=== PATIENT | female | born 1995 | race Caucasian/White ===

== ENCOUNTER 2023-02-18 11:44 | Emergency (ER) | payer SELFPAY ==
[2023-02-18 11:45] VITALS: BP 117/78; PULSE 66; RESP 16; TEMP 35.9; O2SAT 99; BMI 28.3
--- NOTE | 2023-02-18 12:01 | EDS_ITS ---
HPI <Dr. Sravan Thomas, - Last Filed: 02/18/23 12:33> History of Present Illness Chief Complaint: Complaint <AYDEN Berrios - Last Filed: 02/18/23 12:36> Narrative Narrative: Patient is a 27-year-old female who presents to the emergency department for vaginal burning, left lower back pain. Patient states that 3 weeks ago, she was on Bactrim twice a day for 7 days, she has been off Bactrim for 2 weeks. She states that the symptoms stopped for couple days and now they are worse. Patient states that she has worsening burning on urination. Patient denies any vaginal discharge, patient denies any concerns for STD. Patient does not have any concerns for . PFSH <Dr. Sravan Thomas, - Last Filed: 02/18/23 12:33> PFSH Medical History no medical history Home Medications ciprofloxacin HCl 500 mg tablet (Cipro) 500 mg PO BID 10 days #20 tabs 02/18/23 [Rx Last Taken Unknown] Allergy/AdvReac Type Severity Reaction Status Date / Time No Known Allergies Allergy Verified 02/18/23 11:46 Surgical History no surgical history Social History Smoking Status: Never smoker ROS <AYDEN Berrios - Last Filed: 02/18/23 12:36> ROS ED ROS Narrative Constitutional: Negative for fever, chills, weight loss, weakness Eyes: Negative for vision loss, vision change, double vision ENT: Negative for any sore throat, ear pain, congestion Cardiovascular: Negative for any chest pain, tightness, palpitations Respiratory: Negative for any cough, sputum production, hemoptysis, dyspnea, dyspnea on exertion, orthopnea Gastrointestinal: Negative for any abdominal pain, nausea, vomiting, diarrhea, constipation, blood in stool, blood in vomit : Negative for any retention, blood in urine. Positive for urinary frequency, urinary burning Muscle skeletal: Negative for any muscle joint pain, stiffness, myalgias, arthr algias, neck pain. Positive for left lower back pain Neurological: Negative for any headache, syncope, numbness or tingling, dizziness Skin: Negative for any rashes, lumps, itching, abrasions, lacerations Psychiatric: Negative for any depression, anxiety, stress, suicidal ideation, homicidal ideation Hematologic: Negative for any easy bruising, excessive bruising, easy bleeding Allergies: Negative for any eczema, hives, rash EXAM <Dr. Sravan Thomas DO - Last Filed: 02/18/23 12:33> Physical Exam Const Vital Signs: 02/18/23 11:45 Temperature 96.7 F L Temperature Source Temporal Pulse Rate 66 Respiratory Rate 16 Blood Pressure 117/78 Blood Pressure Mean 91 Pulse Ox 99 Oxygen Delivery Method Room Air <Joel MacdonaldAYDEN - Last Filed: 02/18/23 12:36> Physical Exam Narrative Exam Narrative: Vital signs reviewed. HEET: Head normocephalic atraumatic, TMs clear bilaterally. Posterior pharynx is clear, moist mucous membranes. Nares clear bilaterally. Neck: Supple with no lymphadenopathy or tenderness. No signs of meningismus, negative jolt sign. Cardiac: Regular rate and rhythm no murmurs gallops or rubs, equal peripheral pulses bilaterally. Respiratory: Lungs clear to auscultation bilaterally. No chest tenderness. Abdomen: Soft, nontender, nondistended. No abdominal bruit or pulsatile masses. No hepatosplenomegaly Extremities: No peripheral edema, no signs of gross trauma or deformity. Active full range of motion of all extremities. Neuro: Cranial nerves II through XII intact, no focal neurological deficits. Skin: Clean dry and intact with no rash, purpura, petechiae, vesicles or pustules. Backs/flank: No CVA tenderness, no midline spinal tenderness, no deformity. Patient's pain is more towards the left lower lumbar spine. Psych: Normal mood and affect. No SI, HI or acute psychosis. Const Vital Signs: 02/18/23 11:45 Temperature 96.7 F L Temperature Source Temporal Pulse Rate 66 Respiratory Rate 16 Blood Pressure 117/78 Blood Pressure Mean 91 Pulse Ox 99 Oxygen Delivery Method Room Air Positive well nourished and well developed General Appearance ED: well developed MDM <Dr. Sravan Thomas, - Last Filed: 02/18/23 12:33> MDM MDM Narrative Medical decision making narrative: I have personally performed a face to face assessment of the patient and have reviewed the GRACY Note. I performed a substantive portion of the visit including all aspects of the following. My mena findings include: History: Patient presents with dysuria and vaginal burning that has been getting worse over the past several days. Patient states she was recently treated for urinary tract infection. Patient states her symptoms initially started to improve but then returned. Patient admits to burning with urination. Patient states the pain radiates into her lower back. Patient denies any fevers or chills. Patient denies any nausea or vomiting. Exam: Vital signs are stable. Patient is afebrile. Patient is in no acute dis tress. Oral mucosa is pink and moist. Neck is supple. Trachea is midline. There is no JVD. Heart was regular rate and rhythm. Lungs are clear and equal bilaterally. Abdomen is soft. Bowel sounds are normal. There is some mild suprapubic tenderness. There is no rebound or guarding noted. There is no CVA tenderness noted. Cranial nerves II through XII are intact. There are no focal motor or sensory deficits noted. Medical Decision Making: Differential diagnosis includes cystitis, urethritis, ovarian cyst, ectopic , and sexually transmitted infection. CBC will be obtained to assess for leukocytosis and anemia. Basic metabolic profile will be obtained to assess for electrolyte abnormality and renal function. Urinalysis will be obtained to assess for urinary tract infection. Urine hCG will be obtained to assess for . GC and chlamydia will be obtained to assess for sexually transmitted infection. CBC was reviewed. There is a mild leukocytosis of 14.5. The remainder is within normal limits. Basic metabolic profile was reviewed and was within normal limits. Urinalysis was reviewed. Leukocyte esterase was 500 with greater than 100 white blood cells. There is 3+ bacteria. Urine hCG was negative. Urine culture was ordered. Patient was given a dose of Rocephin here. Patient given a prescription for Cipro. Patient was instructed to follow-up with her primary care physician in 3 to 5 days for reevaluation. Patient understood and was agreeable with the plan. All questions were answered. Lab Data Labs: Laboratory Results - last 24 hr 02/18/23 12:05 WBC 14.5 H RBC 4.55 Hgb 13.3 Hct 41.7 MCV 91.6 MCH 29.2 MCHC 31.9 L RDW Std Deviation 44.3 H RDW Coeff of Malini 13.2 Plt Count 325 MPV 10.5 Immature Gran % (Auto) 0.400 Neut % (Auto) 64.8 Lymph % (Auto) 25.8 [place] % (Auto) 4.6 Eos % (Auto) 3.6 Baso % (Auto) 0.8 Absolute Neuts (auto) 9.4 H Absolute Lymphs (auto) 3.74 Nucleated RBC % 0 Sodium 140 Potassium 3.6 Chloride 107 Carbon Dioxide 26.0 Anion Gap 7 BUN 9 Creatinine 0.76 Estim Creat Clear Calc 109.08 Est GFR (MDRD) Af Amer 118 Est GFR (MDRD) Non-Af 98 BUN/Creatinine Ratio 11.9 Glucose 90 Calcium 8.6 Urine Color Yellow Urine Clarity Cloudy Urine pH 6.0 Ur Specific [place] 1.015 Urine Protein 30 H Urine Glucose (UA) Normal Urine Ketones Negative Urine Occult Blood 50 H Urine Nitrite Negative Urine Bilirubin Negative Urine Urobilinogen Normal Ur Leukocyte Esterase 500 H Urine RBC 0 SEEN Urine WBC >100 SEEN Ur Squamous Epith Cells 0-5 SEEN Urine Bacteria 3+ Urine Mucus 0 SEEN Urine Test Negative <AYDEN Berrios - Last Filed: 02/18/23 12:36> [facility] Lab Data Labs: Laboratory Results - last 24 hr 02/18/23 12:05 WBC 14.5 H RBC 4.55 Hgb 13.3 Hct 41.7 MCV 91.6 MCH 29.2 MCHC 31.9 L RDW Std Deviation 44.3 H RDW Coeff of Malini 13.2 Plt Count 325 MPV 10.5 Immature Gran % (Auto) 0.400 Neut % (Auto) 64.8 Lymph % (Auto) 25.8 [place] % (Auto) 4.6 Eos % (Auto) 3.6 Baso % (Auto) 0.8 Absolute Neuts (auto) 9.4 H Absolute Lymphs (auto) 3.74 Nucleated RBC % 0 Sodium 140 Potassium 3.6 Chloride 107 Carbon Dioxide 26.0 Anion Gap 7 BUN 9 Creatinine 0.76 Estim Creat Clear Calc 109.08 Est GFR (MDRD) Af Amer 118 Est GFR (MDRD) Non-Af 98 BUN/Creatinine Ratio 11.9 Glucose 90 Calcium 8.6 Urine Color Yellow Urine Clarity Cloudy Urine pH 6.0 Ur Specific [place] 1.015 Urine Protein 30 H Urine Glucose (UA) Normal Urine Ketones Negative Urine Occult Blood 50 H Urine Nitrite Negative Urine Bilirubin Negative Urine Urobilinogen Normal Ur Leukocyte Esterase 500 H Urine RBC 0 SEEN Urine WBC >100 SEEN Ur Squamous Epith Cells 0-5 SEEN Urine Bacteria 3+ Urine Mucus 0 SEEN Urine Test Negative Treatment and Re-Evaluation :: Patient appears generally well, patient appears nontoxic, vital signs are stable. Presenting to the emergency department with urinary burning, vaginal pain, left lower back pain. Differential diagnosis includes pyelonephritis, UTI, ovarian cyst, STI. Patient received some basic laboratory values concerning for any leukocytosis, kidney function test. Patient will also receive a urinalysis, urine Prag, as well as GC/chlamydia in the urine. Patient's urinalysis was positive for infection with 500 leukocytes, greater than 100 white blood cells, 3+ bacteria. Patient is not . Patient's laboratory does show slight leukocytosis white blood count of 14.5, patient's BMP was unremarkable, kidney function was within normal limits. At this time, patient will be treated for UTI, pyelonephritis. I do not believe the patient needs admitted to the hospital. Patient be given a dose of IV Rocephin here, he placed on 10 days of Cipro. Patient's urine will be sent for culture. GC/committee will also be sent for culture. I spoke with the patient, she will return if not improved, worsening back pain, fever chills nausea vomiting. All questions were answered, patient stable for discharge Discharge Plan Triage Chief Complaint: Complaint ED Midlevel Provider: Joel Macdonald ED Provider: Sravan Thomas Dx/Rx/DC Orders Clinical Impression: UTI (urinary tract infection), Pyelonephritis Instructions: ED Pyelonephritis, Female (Adult) Prescriptions: New ciprofloxacin HCl [Cipro] 500 mg tablet 500 mg PO BID 10 Days Qty: 20 0RF Primary Care Provider: NOT,DEFINED Referrals: NOT,DEFINED [Primary Care Provider] - Activity Restrictions/Additional Instructions: Please take antibiotics until finished. Ensure you stay hydrated. Return for worsening back pain, fever chills nausea or vomiting. Disposition Disposition: Home, Self Care
[2023-02-18 12:13] LABS: Mucous, Urine 0 SEEN /hpf (<or=2+); Red Blood Cells-Urine 0 SEEN /hpf (0-5)
[2023-02-18 12:16] LABS: Absolute Lymphocyte Count 3.74 X10^3/uL (0.83-4.51); Absolute Neutrophil Count 9.4 X10^3/uL (2.0-7.7); Basophil# 0.11 X10^3/uL; Basophil% 0.8 % (0-1); Eosinophil# 0.52 X10^3/uL; Eosinophils% 3.6 % (0-5); Hematocrit 41.7 % (37-47); Hemoglobin 13.3 g/dL (12.0-15.0); Lymphocyte # 3.74 X10^3/ul (0.83-4.51); Lymphocyte % 25.8 % (19-41); Mean Corp Hgb Conc 31.9 g/dL (32-36); Mean Corpuscular Hgb 29.2 pg (27.0-32.0); Mean Corpuscular Volume 91.6 fL (81-99); Mean Platelet Vol. 10.5 fl (6.2-12.0); Monocyte# 0.66 X10^3/uL; Monocyte% 4.6 % (0-10); NRBC Flagged by Analyzer 0 % (0-5); Neutrophil % 64.8 % (47-70); Platelet Count 325 K/mm3 (150-450); RBC Distribution Width CV 13.2 % (11.6-14.6); RBC Distribution Width SD 44.3 fl (35.1-43.9); Red Blood Count 4.55 M/mm3 (4.2-5.4); White Blood Count 14.5 K/mm3 (4.4-11.0)
[2023-02-18 12:21] LABS: Color, Urine Yellow (Yellow); Glucose, Dipstick Normal (Normal); Ketone-Dipstick Negative (Negative); Leukocyte Esterase-Dipstick 500 /ul (Negative); Nitrite-Dipstick Negative (Negative); Occult Blood-Urine 50 /ul (Negative); Protein-Dipstick 30 mg/dl (Negative); Specific Gravity, Urine 1.015 (1.002-1.030); Urine Bilirubin Dipstick Negative (Negative); Urine Clarity Cloudy (Clear); Urine Urobilinogen Normal (Normal)
[2023-02-18 12:29] LABS: Anion Gap 7 (5-15); BUN 9 mg/dL (7-18); BUN/Creat Ratio 11.9 RATIO (10-20); Calcium,Total 8.6 mg/dL (8.5-10.1); Chloride 107 mmol/L (98-107); Creatinine, Serum 0.76 mg/dL (0.55-1.02); EST Glomerular Filtration Rate 98 mL/min (>60); Est Glom Filt Rate - Afr Amer 118 mL/min (>60); Estimated Creatinine Clearance 109.08 ml/min; Glucose 90 mg/dL (74-106); Potassium 3.6 mmol/L (3.5-5.1); Sodium Level 140 mmol/L (136-145); Squamous Epithelial Cells - UA 0-5 SEEN /hpf (5-10)
[2023-02-18 12:30] LABS: Bacteria 3+ /hpf (None Seen); Internal QC Validated? YES +Cl - CLEAR BKGD; Pregnancy, Urine Negative Negative; White Blood Cells >100 SEEN /hpf (0-5)
[2023-02-18] MEDS: Ceftriaxone 1 GM/50 ML BAG IV (12:59)
[2023-02-18 14:10] VITALS: BP 128/74; PULSE 75; RESP 16; O2SAT 99
[2023-02-21 07:08] LABS: Chlamydia By Nucleic Acid AMP Negative (Negative); Gonococcus By Nucleic Acid AMP Negative (Negative)
== END 2023-02-18 14:11 | disposition home or self-care (01) ==
PROVIDERS: Nurse Practitioner; Emergency Provider Emergency Medicine; Visit Provider Emergency Medicine
DX: N12 Tubulo-interstitial nephritis, not specified as acute or chronic (principal); N39.0 Urinary tract infection, site not specified
CPT/HCPCS: 80048; 81001; 81025; 85025; 87086; 87088; 87186; 87491; 87591; 96365; 99283; A4216

== ENCOUNTER 2023-09-30 04:59 | Emergency (ER) | payer SELFPAY ==
[2023-09-30 05:00] VITALS: BP 129/74; PULSE 73; RESP 16; TEMP 35.7; O2SAT 95; BMI 28.8
[2023-09-30 05:20] LABS: Bacteria 0 SEEN /hpf (None Seen); Mucous, Urine 0 SEEN /hpf (<or=2+); Red Blood Cells-Urine 0 SEEN /hpf (0-5); White Blood Cells 0 SEEN /hpf (0-5)
--- NOTE | 2023-09-30 05:29 | EDS_ITS ---
HPI History of Present Illness Chief Complaint: Abd Pain Informant: patient Narrative Narrative: 27-year-old female presenting to the emergency room with lower abdominal pain. Patient states it goes from the right lower quadrant to the left. She states it feels like a sharp cramp. She got nauseous when she attempted to stand up and walk earlier in the night. Patient's not had any vomiting. She notes a normal bowel movement yesterday. No reported fevers. She denies urinary symptoms. Last menstrual cycle was about 2 weeks ago. No prior abdominal surgeries. She did feel some discomfort in her right low back. Patient has no history of ovarian cyst. She denies any vaginal discharge or abnormal bleeding. She notes her mom has a history of ovarian cyst. PFSH PFSH Medical History no medical history Home Medications ?Medication ?Instructions ?Recorded ?Last Taken ?Type NK 09/30/23 Unknown History Allergy/AdvReac Type Severity Reaction Status Date / Time Food Allergies: Uncoded Allergy Anaphylaxis Verified 09/30/23 05:06 Social History Smoking Status: Current some day smoker tobacco type: e-cigarettes ROS ROS ED Constitutional Constitutional ED: Denies chills or weight loss Eyes Eyes: Denies change in vision or diplopia ENT ENT ED: Denies ear pain, rhinorrhea or sore throat Cardiovascular Cardiovascular: Denies chest pain, orthopnea, palpitations or racing heartbeat Respiratory/Chest Respiratory/Chest: Denies cough, dyspnea or orthopnea Gastrointestinal Gastrointestinal: Reports abdominal pain and nausea; Denies diarrhea or vomiting Genitourinary Genitourinary ED: Denies dysuria, hematuria or urinary frequency Musculoskeletal Musculoskeletal: Denies arthralgias or myalgias Integumentary Denies abscess or rash Neurologic Neurologic: Denies headache(s) or weakness Psychiatric Psychiatric: Denies anxiety, depression, suicidal ideation or suicidal thoughts Endocrine Endocrinology: Denies polydipsia, polyphagia or polyuria Allergic/Immunologic Allergic/Immunologic ED: Denies mouth swelling, tongue swelling or urticaria EXAM Physical Exam Const Vital Signs: 09/30/23 05:00 09/30/23 06:03 09/30/23 07:00 Temperature 96.3 F L 97.8 F 98.1 F Temperature Source Oral Oral Oral Pulse Rate 73 88 66 Respiratory Rate 16 16 16 Blood Pressure 129/74 H 105/56 L 100/58 L Blood Pressure Mean 92 72 72 Pulse Ox 95 98 98 Oxygen Delivery Method Room Air Room Air Room Air Positive well nourished and well developed General Appearance ED: well developed HEENT Reports normocephalic, head/scalp atraumatic and moist mucous membranes Eyes PERRL and EOMs intact bilaterally Neck no lymphadenopathy, supple and no JVD Resp normal respiratory effort and clear to auscultation bilaterally Cardio regular rate, regular rhythm and no murmurs GI Inspection: Negative for abdominal distention Auscultation: normoactive bowel sounds Palpation: soft and tender RLQ and suprapubic; Negative for guarding or rebound tenderness present Back/Spine no CVA tenderness and normal ROM Extremity normal to inspection General Extremety ED: Negative for edema General Extremity: Negative for edema Neuro oriented x3 and CN's II-XII intact bilaterally Sensorium / Orientation: alert Motor Exam: strength 5/5 throughout Psych mental status grossly normal Mood & Affect: Negative for depressed or tearful Skin no rashes or lesions noted and no wounds MDM MDM MDM Narrative Medical decision making narrative: Differential diagnosis includes appendicitis ureterolithiasis UTI ovarian cyst pelvic infection. White count slightly elevated 13.8 BMP within normal limits urinalysis showed no overt infection test is negative. Patient received a dose of Toradol. CT of the abdomen pelvis shows some mild free fluid in the pelvis. The appendix was noted by radiology to be visualized and negative. I reviewed the above findings with the patient. She is experiencing considerable discomfort. We talked about outpatient follow-up for possible ruptured ovarian cyst versus pelvic ultrasound. She again notes no vaginal discharge fevers. She denies activity placing her at risk for STD. Using shared decision making we are going to obtain a pelvic ultrasound. If this is negative I would anticipate an ED discharge to follow-up with [facility] with a prescription for pain medication. I will check the patient out to the oncoming physician for final disposition and check of the pelvic ultrasound. History & Record Review Discussion w/independent historian: Patient and Significant other Lab Data Attestation: I reviewed the patient's lab results. Labs: Laboratory Results - last 24 hr 09/30/23 09/30/23 05:10 05:30 WBC 13.8 H RBC 4.08 L Hgb 12.2 Hct 37.2 MCV 91.2 MCH 29.9 MCHC 32.8 RDW Std Deviation 42.4 RDW Coeff of Malini 12.9 Plt Count 279 MPV 10.1 Immature Gran % (Auto) 0.400 Neut % (Auto) 50.8 Lymph % (Auto) 39.6 [place] % (Auto) 5.2 Eos % (Auto) 3.3 Baso % (Auto) 0.7 Absolute Neuts (auto) 7.0 Absolute Lymphs (auto) 5.44 H Nucleated RBC % 0 Differential Comment SCANNED Sodium 139 Potassium 3.5 Chloride 108 H Carbon Dioxide 23.0 Anion Gap 8 BUN 10 Creatinine 0.64 Estim Creat Clear Calc 147.87 Est GFR (MDRD) Af Amer 142 Est GFR (MDRD) Non-Af 117 BUN/Creatinine Ratio 15.5 Glucose 95 Calcium 8.7 Urine Color Yellow Urine Clarity Clear Urine pH 6.0 Ur Specific [place] 1.020 Urine Protein Negative Urine Glucose (UA) Normal Urine Ketones Negative Urine Occult Blood Negative Urine Nitrite Negative Urine Bilirubin Negative Urine Urobilinogen Normal Ur Leukocyte Esterase Negative Urine RBC 0 SEEN Urine WBC 0 SEEN Ur Squamous Epith Cells 0-5 SEEN Urine Bacteria 0 SEEN Urine Mucus 0 SEEN Urine Test Negative Radiography Diagnostic Testing: Clinical Impression(s) from Imaging Studies Abdomen/Pelvis CT 09/30/23 06:14 IMPRESSION: Small amount of free fluid nonspecific. No evidence of acute appendicitis. Electronically Signed: Pili Downs MD at 7:08 EDT , Discharge Plan Triage Chief Complaint: Abd Pain ED Provider: Ken Wright Dx/Rx/DC Orders Prescriptions: No Action NK Primary Care Provider: Care Physician,No Primary Referrals: Care Physician,No Primary [Primary Care Provider] - Print Language: Italian
[2023-09-30 05:34] LABS: Color, Urine Yellow (Yellow); Glucose, Dipstick Normal (Normal); Ketone-Dipstick Negative (Negative); Leukocyte Esterase-Dipstick Negative /ul (Negative); Nitrite-Dipstick Negative (Negative); Occult Blood-Urine Negative /ul (Negative); Protein-Dipstick Negative (Negative); Urine Bilirubin Dipstick Negative (Negative); Urine Clarity Clear (Clear); Urine Urobilinogen Normal (Normal)
[2023-09-30] MEDS: Ketorolac 30 MG/ML Syringe IV (05:37)
[2023-09-30 05:43] LABS: Absolute Lymphocyte Count 5.44 X10^3/uL (0.83-4.51); Basophil# 0.09 X10^3/uL; Basophil% 0.7 % (0-1); Eosinophil# 0.46 X10^3/uL; Eosinophils% 3.3 % (0-5); Hematocrit 37.2 % (37-47); Hemoglobin 12.2 g/dL (12.0-15.0); Lymphocyte # 5.44 X10^3/ul (0.83-4.51); Lymphocyte % 39.6 % (19-41); Mean Corp Hgb Conc 32.8 g/dL (32-36); Mean Corpuscular Hgb 29.9 pg (27.0-32.0); Mean Corpuscular Volume 91.2 fL (81-99); Mean Platelet Vol. 10.1 fl (6.2-12.0); Monocyte# 0.71 X10^3/uL; Monocyte% 5.2 % (0-10); NRBC Flagged by Analyzer 0 % (0-5); Neutrophil # 6.99 X10^3/uL (2.7-7.7); Neutrophil % 50.8 % (47-70); POSITIVE DIFFERENTIAL YES; POSITIVE MORPHOLOGY YES; Platelet Count 279 K/mm3 (150-450); RBC Distribution Width CV 12.9 % (11.6-14.6); RBC Distribution Width SD 42.4 fl (35.1-43.9); Red Blood Count 4.08 M/mm3 (4.2-5.4); White Blood Count 13.8 K/mm3 (4.4-11.0)
[2023-09-30 05:43] LABS: Internal QC Validated? YES +Cl - CLEAR BKGD; Pregnancy, Urine Negative Negative; Record Kit Lot#,Urine Preg 735774
[2023-09-30 05:53] LABS: Squamous Epithelial Cells - UA 0-5 SEEN /hpf (5-10)
[2023-09-30 05:54] LABS: Differential Indicated SCAN CRITERIA MET
[2023-09-30 06:01] LABS: Anion Gap 8 (5-15); BUN 10 mg/dL (7-18); BUN/Creat Ratio 15.5 RATIO (10-20); Calcium,Total 8.7 mg/dL (8.5-10.1); Chloride 108 mmol/L (98-107); Creatinine, Serum 0.64 mg/dL (0.55-1.02); EST Glomerular Filtration Rate 117 mL/min (>60); Est Glom Filt Rate - Afr Amer 142 mL/min (>60); Estimated Creatinine Clearance 147.87 ml/min; Glucose 95 mg/dL (74-106); Potassium 3.5 mmol/L (3.5-5.1); Sodium Level 139 mmol/L (136-145)
[2023-09-30 06:03] VITALS: BP 105/56; PULSE 88; RESP 16; TEMP 36.6; O2SAT 98
--- NOTE | 2023-09-30 06:14 | CT_ITS ---
EXAM: CT Abdomen And Pelvis W/ Contrast Injection HISTORY: RLQ PAIN TECHNIQUE: Routine protocol CT abdomen pelvis. IV Contrast: IV 100mL Isovue-370 . Oral Contrast: without. Sagittal and coronal images were reconstructed. RADIATION DOSAGE (If Supplied By Facility): CTDIvol = ( 14.89 ) mGy, DLP = ( 931.78 ) mGycm Individualized dose optimization techniques were used for this CT. COMPARISON: None. LIMITATIONS: None. FINDINGS: LOWER CHEST: Lung bases are clear. LIVER: Unremarkable. GALLBLADDER/BILE DUCTS: Unremarkable. PANCREAS: Unremarkable. SPLEEN: Unremarkable. ADRENAL GLANDS: Unremarkable. KIDNEYS / URETERS: Unremarkable. BOWEL / MESENTERY: Unremarkable. No bowel obstruction. APPENDIX: Identified and normal. No evidence of acute appendicitis. PERITONEUM: No free air. Small amount of free fluid in the right lower abdomen and pelvis. VESSELS: Abdominal aorta is normal caliber. RETROPERITONEUM: Unremarkable. REPRODUCTIVE ORGANS: Unremarkable. BLADDER: Unremarkable. ABDOMINAL WALL: Unremarkable. BONES: No acute abnormality. OTHER: None. CT/Abdomen/Pelvis W IV Cont ONLY IMPRESSION: Small amount of free fluid nonspecific. No evidence of acute appendicitis. Electronically Signed: Pili Downs MD at 7:08 EDT ,
[2023-09-30 06:41] LABS: Differential Comment SCANNED
[2023-09-30 07:00] VITALS: BP 100/58; PULSE 66; RESP 16; TEMP 36.7; O2SAT 98
--- NOTE | 2023-09-30 07:39 | US_ITS ---
HISTORY: pelvic pain-RLQ. TECHNIQUE: Transvaginal pelvic ultrasound was performed with palomares scale , spectral Doppler, and color Doppler evaluation. 76 images. COMPARISON: CT same day. FINDINGS: UTERUS: 7.8 x 3.8 x 5.3 cm. Anteverted. ENDOMETRIAL THICKNESS: 3 mm. RIGHT OVARY: 1.9 x 2.3 x 2.9 cm with a 10 mm dominant follicle. Vascular flow demonstrated. No adnexal masses LEFT OVARY: 2.1 x 2.3 x 3.3 cm. Vascular flow demonstrated. 1.5 x 1.7 x 2.2 cm involuting complex cystic ovarian lesion. 1.6 x 1.7 x 2 cm simple left adnexal cyst. FREE FLUID: Mild. US/Transvaginal Non- IMPRESSION: Vascular flow demonstrated to both ovaries. Mild free fluid in the pelvis with a small complex involuting left ovarian cyst, probable hemorrhagic cyst. Small left paraovarian cyst. Electronically Signed: Ness Enrique MD at 9:38 EDT ,
[2023-09-30] MEDS: Ondansetron 4 MG/2 ML Vial IV (07:54)
[2023-09-30] MEDS: Morphine 4 MG/ML Syringe IV (07:54)
[2023-09-30 08:00] VITALS: BP 104/61; PULSE 64; RESP 16; TEMP 36.7; O2SAT 98
[2023-09-30 09:00] VITALS: BP 121/99; PULSE 52; RESP 18; O2SAT 96
[2023-09-30 10:25] VITALS: BP 102/68; PULSE 60; RESP 18; TEMP 36.1; O2SAT 98
== END 2023-09-30 10:31 | disposition home or self-care (01) ==
PROVIDERS: Emergency Provider Emergency Medicine; Visit Provider Emergency Medicine
DX: R10.31 Right lower quadrant pain (principal); R10.32 Left lower quadrant pain; F17.290 Nicotine dependence, other tobacco product, uncomplicated
CPT/HCPCS: 74177; 76830; 80048; 81001; 81025; 85025; 93976; 96374; 96375; 99283; Q9967; A4216; J2405

== ENCOUNTER 2024-10-13 17:45 | Emergency (ER) | payer OTHER, BC, SELFPAY ==
[2024-10-13 17:47] VITALS: BP 115/55; PULSE 78; RESP 16; TEMP 36; O2SAT 97
--- NOTE | 2024-10-13 18:15 | RAD_ITS ---
PROCEDURE: KNEE 4 OR MORE VIEWS 10/13/2024 REASON FOR EXAM: PAIN TECHNIQUE: KNEE 4 OR MORE VIEWS COMPARISON: None RAD/Knee 4 or More Views IMPRESSION: No acute fracture or dislocation. No significant degenerative changes. Mild d iffuse soft tissue edema. Mild joint effusion. No radiographic foreign body. Reading Location: [id number]
[2024-10-13 20:46] VITALS: BMI 36.9
--- NOTE | 2024-10-13 20:46 | EDS_ITS ---
HPI History of Present Illness HPI Narrative: Patient presents with right knee pain that began today. Patient states she was at work and hit her knee on a piece of equipment at work. Patient states that her patella went laterally. Patient states her pain is sharp. Patient states it is worse with movement. Patient states it is better with rest. Patient denies any paresthesias or weakness. Patient denies any other injuries. Chief Complaint: Lower Extremity Injury Informant: patient Occured/Mechanism Mechanism/Context: Yes blunt trauma Onset/Context/Timing Onset: Today Context: Sudden Onset Timing: Continuous Quality of Pain: Sharp Location: Right knee Worsened by: Movement Relieved by: Rest Associated Symptoms Associated Symptoms: Negative for Parasthesia, Weakness or Loss of Funtion PFSH PFSH no medical history Home Medications ?Medication ?Instructions ?Recorded ?Last Taken ?Type oxycodone-acetaminophen 5 mg-325 1 tab PO Q6H PRN PRN Pain 3 days 09/30/23 Unknown Rx mg tablet #12 TABLETS Allergy/AdvReac Type Severity Reaction Status Date / Time Food Allergies: Uncoded Allergy Anaphylaxis Verified 10/13/24 17:47 Surgical History (Updated 10/13/24 @ 22:[address] Sravan Thomas DO) History of kidney surgery History of tonsillectomy and adenoidectomy Social History household members: significant other housing: apartment Smoking Status: Current some day smoker tobacco type: e-cigarettes ROS ROS ED Constitutional Constitutional ED: Denies chills or fever(s) Eyes Eyes: Denies blurry vision or change in vision ENT ENT ED: Denies rhinorrhea or sore throat Cardiovascular Cardiovascular: Denies chest pain or palpitations Respiratory/Chest Respiratory/Chest: Denies cough or dyspnea Gastrointestinal Gastrointestinal: Denies nausea or vomiting Genitourinary Genitourinary ED: Denies dysuria or hematuria Musculoskeletal Musculoskeletal: Denies back pain or neck pain Integumentary Denies abscess or rash Neurologic Neurologic: Denies headache(s) or weakness Allergic/Immunologic Allergic/Immunologic ED: Denies mouth swelling or urticaria EXAM Physical Exam Const Vital Signs: 10/13/24 17:47 10/13/24 21:46 10/13/24 22:31 Temperature 96.8 F L 98.3 F Temperature Source Temporal Pulse Rate 78 80 80 Respiratory Rate 16 16 16 Blood Pressure 115/55 L 126/78 H 126/78 H Blood Pressure Mean 75 94 94 Pulse Ox 97 99 99 Oxygen Delivery Method Room Air Positive well nourished and well developed General Appearance ED: well developed and NAD HEENT Reports moist mucous membranes Neck full ROM and supple Extremity Extremity Narrative: There is tenderness over the anterior aspect of the right knee. There is no bony crepitus or step-off. There is no deformity noted. There is no laxity appreciated. Varus and valgus stress test were negative. Hayes's test was negative. Extensor mechanism is intact. Strength is 5/5 bilaterally in the lower extremities. There are no sensory deficits noted. Pedal pulses are equal bilaterally. Neuro oriented x3, CN's II-XII intact bilaterally, moves all extremities and no sensory deficits noted Sensorium / Orientation: alert Motor Exam: strength 5/5 throughout Psych mental status grossly normal MDM MDM MDM Narrative Medical decision making narrative: Differential diagnosis includes contusion, sprain, and occult fracture. X-rays of the right knee will be obtained to assess for occult fracture. Radiography Diagnostic Testing: Clinical Impression(s) from Imaging Studies Knee X-Ray 10/13/24 18:15 IMPRESSION: No acute fracture or dislocation. No significant degenerative changes. Mild diffuse soft tissue edema. Mild joint effusion. No radiographic foreign body. Reading Location: [facility] X-rays of the right knee were obtained. There are 4 views. On my independent interpretation, there is no acute fracture or dislocation. There is a mild joint effusion. Radiologist also interpreted the x-rays and agrees. Treatment and Re-Evaluation Narrative: Patient was advised of her findings. Patient was advised that this is most likely a contusion. Patient was instructed to ice and elevate the right knee. Patient was instructed to take Tylenol or ibuprofen as needed for pain. Patient was instructed to follow-up with her primary care physician or the [facility] in 5 to 7 days. Patient was instructed to return if worse in any way. Patient understood and was agreeable with the plan. All questions were answered. Discharge Plan Triage Chief Complaint: Lower Extremity Injury ED Provider: Sravan Thomas Dx/Rx/DC Orders Clinical Impression: Contusion of right knee, initial encounter Instructions: ED Contusion, Lower Extremity Prescriptions: No Action oxycodone-acetaminophen 5-325 mg tablet 1 tab PO Q6H PRN PRN (Reason: Pain) 3 Days Qty: 12 0RF Primary Care Provider: Care Physician,No Primary Referrals: Care Physician,No Primary [Primary Care Provider] - [facility] [Non-Staff] - 5-7 Days Print Language: Slovenian Disposition Disposition: Home, Self Care Discharge Date/Time: 10/13/24 22:31
[2024-10-13 21:46] VITALS: BP 126/78; PULSE 80; RESP 16; O2SAT 99
[2024-10-13 22:31] VITALS: BP 126/78; PULSE 80; RESP 16; TEMP 36.8; O2SAT 99
== END 2024-10-13 22:31 | disposition home or self-care (01) ==
PROVIDERS: Emergency Provider Emergency Medicine; Visit Provider Emergency Medicine
DX: S80.01XA Contusion of right knee, initial encounter (principal); W22.09XA Striking against other stationary object, initial encounter; Y99.0 Civilian activity done for income or pay
CPT/HCPCS: 73564; 99282

== ENCOUNTER 2025-03-02 01:03 | Emergency (ER) | payer BC, SELFPAY ==
[2025-03-02 01:03] VITALS: BP 175/79; PULSE 93; RESP 16; TEMP 37.3; O2SAT 98; BMI 38.4
[2025-03-02 01:06] VITALS: BP 175/79; PULSE 95; RESP 16; TEMP 37.3; O2SAT 98
[2025-03-02 02:04] LABS: Mucous, Urine 0 SEEN /hpf (<or=2+)
[2025-03-02 02:06] LABS: Color, Urine Yellow (Yellow); Glucose, Dipstick Normal (Normal); Ketone-Dipstick Negative (Negative); Leukocyte Esterase-Dipstick 500 /ul (Negative); Nitrite-Dipstick Negative (Negative); Occult Blood-Urine 250 /ul (Negative); Protein-Dipstick 30 mg/dl (Negative); Specific Gravity, Urine 1.015 (1.002-1.030); Urine Bilirubin Dipstick Negative (Negative)
[2025-03-02 02:13] LABS: Internal QC Validated? YES +Cl - CLEAR BKGD; Pregnancy, Urine Negative Negative
[2025-03-02 02:14] LABS: Record Kit Lot#,Urine Preg 0000980607
[2025-03-02 02:15] LABS: Red Blood Cells-Urine > 100 SEEN /hpf (0-5); Squamous Epithelial Cells - UA 5-10 SEEN /hpf (5-10)
--- NOTE | 2025-03-02 02:49 | CT_ITS ---
PROCEDURE: CT/Abdomen/Pelvis without Cont
[2025-03-02 03:03] VITALS: BP 129/60; PULSE 73; RESP 16; O2SAT 97
[2025-03-02] MEDS: Ketorolac 30 MG/ML Syringe IV (03:12)
[2025-03-02] MEDS: 0.9% Normal Saline (1000mL) 1,000 ML 999 ML IV (03:12)
[2025-03-02 03:19] LABS: Hematocrit 37.2 % (37-47); Hemoglobin 12.0 g/dL (12.0-15.0); Immature Granulocytes Count 0.090 X10^3/uL (0.0-0.0); Mean Corp Hgb Conc 32.3 g/dL (32-36); Mean Corpuscular Volume 89.6 fL (81-99); Mean Platelet Vol. 9.9 fl (6.2-12.0); NRBC Flagged by Analyzer 0 % (0-5); Platelet Count 275 K/mm3 (150-450); RBC Distribution Width CV 13.0 % (11.6-14.6); RBC Distribution Width SD 43.1 fl (35.1-43.9); Red Blood Count 4.15 M/mm3 (4.2-5.4); White Blood Count 19.9 K/mm3 (4.4-11.0)
[2025-03-02 03:40] LABS: Anion Gap 9 (5-15); BUN 14 mg/dL (4-19); BUN/Creat Ratio 19.3 RATIO (10-20); Calcium,Total 8.2 mg/dL (7.6-11.0); Carbon Dioxide 23.5 mmol/L (21.0-32.0); Chloride 107 mmol/L (98-108); Estimated Creatinine Clearance 147.58 ml/min (50-250); Glucose 105 mg/dL (70-99); Potassium 3.8 mmol/L (3.3-5.1)
--- NOTE | 2025-03-02 04:30 | EX.ED.DYSGE1 ---
HPI History of Present Illness Chief Complaint: Flank Pain Informant: patient Narrative Narrative: Patient is a 29-year-old female who states she recently finished antibiotics for bacterial vaginosis. Today she has noticed discomfort with urination and states that there is bilateral back pain associated with this but it is greatest on the right. She denies any fevers or chills or concern for . She denies any vaginal bleeding or discharge or concern for STD. She states has been no recent trauma or excessive activity. However with the worsening symptoms she is concerned she may have an infection with this presents for evaluation [facility] Medical History (Updated 03/03/25 @ 01:[address] Jose D Burnham, DO) Bacterial vaginosis Home Medications ?Medication ?Instructions ?Recorded ?Last Taken ?Type cephalexin 500 mg capsule 500 mg PO TID 7 days #21 caps 03/02/25 Unknown Rx escitalopram oxalate 5 mg tablet 5 mg PO DAILY 03/02/25 Unknown History lamotrigine 100 mg tablet 100 mg PO DAILY 03/02/25 Unknown History oxycodone-acetaminophen 5 mg-325 1 tab PO Q6H PRN pain 3 days #12 03/02/25 Unknown Rx mg tablet (Percocet) tabs Allergy/AdvReac Type Severity Reaction Status Date / Time Food Allergies: Uncoded Allergy Anaphylaxis Verified 03/02/25 01:06 Surgical History History of kidney surgery History of tonsillectomy and adenoidectomy Social History household members: significant other housing: apartment Smoking Status: Former smoker ROS ROS ED Constitutional Constitutional ED: Denies chills or fever(s) ENT ENT ED: Denies sore throat Cardiovascular Cardiovascular: Denies chest pain Respiratory/Chest Respiratory/Chest: Denies cough or dyspnea Gastrointestinal Gastrointestinal: Reports abdominal pain; Denies diarrhea, nausea or vomiting Genitourinary Genitourinary ED: Reports dysuria and urinary frequency; Denies hematuria Musculoskeletal Musculoskeletal: Reports back pain Integumentary Denies rash Neurologic Neurologic: Denies headache(s) Hematologic/Lymphatic Hematologic/Lymphatic: Denies easy bleeding or easy bruising EXAM Physical Exam Const Vital Signs: 03/02/25 03:03 03/02/25 04:34 Temperature 99 F Pulse Rate 73 70 Respiratory Rate 16 16 Blood Pressure 129/60 H 121/52 H Blood Pressure Mean 83 75 Pulse Ox 97 95 Oxygen Delivery Method Room Air Positive well nourished and well developed General Appearance ED: well developed; Negative for pallor HEENT HEENT Narrative: Normocephalic atraumatic Eyes PERRL and EOMs intact bilaterally General Eye ED: Negative for scleral icterus Neck supple Resp normal respiratory effort and clear to auscultation bilaterally Cardio regular rate and regular rhythm Rate: other Other Details: Heart is regular rate and rhythm without murmurs rubs or gallops Radial and carotid pulses are equal and symmetric GI non-distended and no masses GI Narrative: Abdomen is soft and nondistended with normal active bowel sounds Patient has pain on palpation in the suprapubic region No voluntary guarding or rigidity or pulsatile mass No peritoneal signs Auscultation: normoactive bowel sounds Palpation: soft Back/Spine Back/Spine Narrative: Right CVA pain is noted Extremity normal to inspection Neuro oriented x3, CN's II-XII intact bilaterally and no sensory deficits noted Sensorium / Orientation: alert Motor Exam: strength 5/5 throughout Psych mental status grossly normal Skin no rashes or lesions noted and no wounds Skin Narrative: No overlying soft tissue changes to suggest trauma or infection General Skin Exam: Negative for jaundice or pallor MDM MDM MDM Narrative Medical decision making narrative: Patient arrived to ER hypertensive otherwise with stable vitals. She reported midline lower abdominal discomfort with dysuria. History and exam is most consistent with UTI. However as she also has pain mainly along the right flank patient could have atypical presentation for kidney stone. In order to rule out signs of urosepsis acute kidney injury complication or kidney stone basic labs and a urine sample were ordered as well as a noncontrast CT. labs show leukocytosis at 19.9 but otherwise no sign of acute kidney injury or clinically significant electrolyte abnormality. Urine sample does show +3 bacteria with greater than 100 white cells most consistent with infection. There is also a large amount of blood present. This could be due to the UTI causing bleeding from the bladder but with concern that this was from a kidney stone a CT was obtained. The CT scan revealed no sign of stone but did mention thickening of the bladder which would correlate with her infectious process. The patient does have the elevated white blood cell count but this time she is afebrile her blood pressure is stable she is not tachycardic and therefore she is not showing other findings that would suggest systemic infection/sepsis. Therefore she was given IV Rocephin because of the infection but without signs of CORINNA or urosepsis I do not feel she warrants admission to the hospital. Her urine will be sent for culture and she will be started on Keflex in the meantime. This plan of care was discussed with the patient who is agreeable to it and with stable vitals and improvement of symptoms she is otherwise safe for discharge History & Record Review Discussion w/independent historian: Patient Lab Data Attestation: I reviewed the patient's lab results. Labs: Laboratory Results - last 24 hr 03/02/25 03/02/25 01:58 03:13 WBC 19.9 H RBC 4.15 L Hgb 12.0 Hct 37.2 MCV 89.6 MCH 28.9 MCHC 32.3 RDW Std Deviation 43.1 RDW Coeff of Malini 13.0 Plt Count 275 MPV 9.9 Immature Gran % (Auto) 0.500 Neut % (Auto) 70.1 H Lymph % (Auto) 21.4 [place] % (Auto) 5.4 Eos % (Auto) 2.2 Baso % (Auto) 0.4 Absolute Neuts (auto) 14.0 H Absolute Lymphs (auto) 4.27 Nucleated RBC % 0 Sodium 139 Potassium 3.8 Chloride 107 Carbon Dioxide 23.5 Anion Gap 9 BUN 14 Creatinine 0.73 Estim Creat Clear Calc 147.58 Est GFR (MDRD) Non-Af 115 BUN/Creatinine Ratio 19.3 Glucose 105 H Calcium 8.2 Urine Color Yellow Urine Clarity Cloudy Urine pH 7.0 Ur Specific [place] 1.015 Urine Protein 30 H Urine Glucose (UA) Normal Urine Ketones Negative Urine Occult Blood 250 H Urine Nitrite Negative Urine Bilirubin Negative Urine Urobilinogen Normal Ur Leukocyte Esterase 500 H Urine RBC > 100 SEEN Urine WBC >100 SEEN Ur Squamous Epith Cells 5-10 SEEN Urine Bacteria 3+ Urine Mucus 0 SEEN Urine Test Negative Radiography Diagnostic Testing: Clinical Impression(s) from Imaging Studies Abdomen/Pelvis CT 03/02/25 02:49 IMPRESSION: No renal calculi. No hydronephrosis. Urinary bladder minimal uniform mural thickening, possibly attributed to its under distension. No acute pelvi-abdominal abnormalities, collections or free air. Reading Location: [place] [id number] Discharge Plan Triage Chief Complaint: Flank Pain ED Provider: Jose D Burnham Dx/Rx/DC Orders Clinical Impression: Urinary tract infection, Hematuria Instructions: Urinary Tract Infections in Women, ED Pyelonephritis, Female (Adult) Prescriptions: New cephalexin 500 mg capsule 500 mg PO TID 7 Days Qty: 21 0RF oxycodone-acetaminophen [Percocet] 5-325 mg tablet 1 tab PO Q6H PRN (Reason: pain) 3 Days Qty: 12 0RF No Action lamotrigine 100 mg tablet 100 mg PO DAILY escitalopram oxalate 5 mg tablet 5 mg PO DAILY Primary Care Provider: Care Physician,No Primary Referrals: Joel Bass MD [Med Staff - Active Staff, Family Practice] Care Physician,No Primary [Primary Care Provider, Medical] Activity Restrictions/Additional Instructions: Your urine sample showed changes consistent with infection but the CT scan revealed no sign of kidney stone or mass. Your urine was sent for culture and this will take on average 2 to 3 days to come back. You will be notified if you need to have your antibiotic changed otherwise no contact from the ER indicates you are on the proper antibiotic. We would typically take 48 to 72 hours for symptom improvement. Return to the ER should you have any further concerns Print Language: Tajik Disposition Disposition: Home, Self Care Discharge Date/Time: 03/02/25 04:43
[2025-03-02 04:34] VITALS: BP 121/52; PULSE 70; RESP 16; TEMP 37.2; O2SAT 95
== END 2025-03-02 04:43 | disposition home or self-care (01) ==
PROVIDERS: Emergency Provider Emergency Medicine; Visit Provider Emergency Medicine
DX: N39.0 Urinary tract infection, site not specified (principal); R31.9 Hematuria, unspecified; Z87.891 Personal history of nicotine dependence
CPT/HCPCS: 74176; 80048; 81001; 81025; 85025; 87086; 87088; 96365; 96372; 96375; 96376; 99283; A4216